=== PATIENT | male | born 1995 | race Caucasian/White ===

== ENCOUNTER 2019-12-11 22:46 | Emergency (ER) | payer OTHER ==
[2019-12-11 22:59] VITALS: BP 126/84
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
== END 2019-12-11 23:50 | disposition home or self-care (01) ==
LOC: ER 22:46
DX: R10.9 Unspecified abdominal pain (principal); V87.7XXA Person injured in collision between other specified motor vehicles (traffic), initial encounter
CPT/HCPCS: 99284

== ENCOUNTER 2020-06-09 13:43 | Emergency (ER) | payer SELFPAY ==
[2020-06-09 14:07] VITALS: BP 147/95
--- NOTE | 2020-06-09 14:19 | ER Document Report ---
HPI - HPI Time Seen by Provider: 06/09/20 14:05 Pain Level: Denies Notes: 24-year-old male patient presenting to the emergency department with concern for sinus congestion. Patient reports he has been taking Mucinex. He denies any cough but states that he is "stuffed up. Patient has not had fever or chills, he does report slight alteration in taste. He is concerned also that he may have Covid. Patient reports this makes him feel very anxious. He denies any kn own positive exposures to Covid. - REPRODUCTIVE Reproductive: DENIES: : Past Medical History - General Information source: Patient - Social History Smoking Status: Never Smoker Frequency of alcohol use: None Drug Abuse: None Family History: Reviewed & Not Pertinent Psychiatric Medical History: Reports: Hx Anxiety Surgical Hx: Negative - Immunizations Immunizations up to date: Yes Vertical Provider Document - CONSTITUTIONAL Notes: PHYSICAL EXAMINATION: GENERAL: Well-appearing, well-nourished and in no acute distress. HEAD: Atraumatic, normocephalic. EYES: Pupils equal round extraocular movements intact, conjunctiva are normal. ENT: Nares patent NECK: Normal range of motion LUNGS: No respiratory distress Musculoskeletal: Normal range of motion NEUROLOGICAL: Normal speech, normal gait. PSYCH: Normal mood, normal affect. SKIN: Warm, Dry, normal turgor, no rashes or lesions noted. Course - Re-evaluation Re-evalutation: The patient's emergency department workup and current diagnosis were explained to the patient and or family. Follow-up instructions were provided. Medications if prescribed were discussed. Instructions for when to return to the emergency department including specific worrisome symptoms were discussed with the patient and/or family. - Vital Signs Vital signs: Temp Pulse Resp BP Pulse Ox 98.2 F 114 H 16 147/95 H 96 06/09/20 14:06 06/09/20 14:06 06/09/20 14:06 06/09/20 14:06 06/09/20 14:06 - Laboratory Results Critical Laboratory Results Reviewed: No Critical Results - Radiology Results Critical Radiology Results Reviewed: No Critical Results Discharge - Discharge Clinical Impression: Encounter for laboratory testing for COVID-19 virus, Anxiety Chest pain Qualifiers: Chest pain type: unspecified Qualified Code(s): R07.9 - Chest pain, unspecified Condition: Stable Disposition: HOME, SELF-CARE Instructions: COVID-19 Guidance for Persons Under Investigation Additional Instructions: Your COVID-19 test is pending. Please take the prednisone that I prescribed. Continue taking Mucinex. Follow-up with your primary care provider. Self quarantine until you have received your results from the health department. Prescriptions: Prednisone [Deltasone 20 mg Tablet] 60 mg PO DAILY #15 tablet
--- NOTE | 2020-06-09 19:53 | EKG REPORT ---
SEVERITY:- OTHERWISE NORMAL ECG - SINUS TACHYCARDIA : Confirmed by: Rukhsana Ulrich MD 09-Jun-2020 19:52:57
== END 2020-06-09 14:23 | disposition home or self-care (01) ==
LOC: ER 13:43
DX: R07.9 Chest pain, unspecified (principal); R09.89 Other specified symptoms and signs involving the circulatory and respiratory systems; R43.9 Unspecified disturbances of smell and taste; F41.9 Anxiety disorder, unspecified; Z20.822 Contact with and (suspected) exposure to COVID-19
CPT/HCPCS: 93005; 99284; 87635; 93010; C9803